=== PATIENT | male | born 1940 ===

== ENCOUNTER 2022-09-28 10:57 | Inpatient (IN) | payer OTHER ==
[~2022-09-28] VITALS: Ht 172.7 cm; Wt 77.1 kg
[~2022-09-28 10:57] MED LIST: ADULT LOW DOSE81 M1 PO; ALDACTONE25 MG PO; BRILINTA90 MG PO; LASIX20 MG PO; LIPITOR40 MG PO; TOPROL XL50 M1 PO; VASOTEC20 M1 PO
[2022-09-28] MEDS ORDERED: ENALAPRIL MALEA10 MG PO (11:42)
[2022-09-28] MEDS ORDERED: LEVOTHYROXINE25 MCG PO (11:42)
[2022-10-09] MEDS ORDERED: MEDROLPACK PO (08:12)
[2022-10-09] MEDS ORDERED: AMOX-CLAV 875-1 EACH PO (08:12)
[2022-10-09] MEDS ORDERED: PERCOCET 5-3251 EACH PO (08:12)
[2022-10-09] MEDS ORDERED: NEURONTIN800 MG PO (08:12)
[2022-10-09] MEDS ORDERED: COLACE100 MG PO (08:12)
== END 2022-10-11 13:25 | DRG 455 ==
LOC: PED 10-09 05:30 → O/R 10-09 05:30 → SURH 10-09 09:47 → PED 10-09 15:57
PROVIDERS: ADMIT Orthopaedic Surgery Orthopaedic Surgery of the Spine; ATTEND Orthopaedic Surgery Orthopaedic Surgery of the Spine
PROC: 0SG0071 Fusion of Lumbar Vertebral Joint with Autologous Tissue Substitute, Posterior Approach, Posterior Column, Open Approach (ICD-10-PCS; 2022-10-09)
PROC: 0QB30ZZ Excision of Left Pelvic Bone, Open Approach (ICD-10-PCS; 2022-10-09)
PROC: 0ST20ZZ Resection of Lumbar Vertebral Disc, Open Approach (ICD-10-PCS; 2022-10-09)
PROC: 07DR0ZZ Extraction of Iliac Bone Marrow, Open Approach (ICD-10-PCS; 2022-10-09)
PROC: XRGB0R7 Fusion of Lumbar Vertebral Joint using Custom-Made Anatomically Designed Interbody Fusion Device, Open Approach, New Technology Group 7 (ICD-10-PCS; principal; 2022-10-09 15:30)
DX: M48.062 Spinal stenosis, lumbar region with neurogenic claudication (principal); M41.56 Other secondary scoliosis, lumbar region; M51.36 Other intervertebral disc degeneration, lumbar region

== ENCOUNTER → 2022-10-09 06:26 | Outpatient (CLI) | payer OTHER ==
[~2022-10-09 06:26] MED LIST changes: +AMOX-CLAV 875-1 EACH PO; +COLACE100 MG PO; +ENALAPRIL MALEA10 MG PO; +LEVOTHYROXINE25 MCG PO; +MEDROLPACK PO; +NEURONTIN800 MG PO; +PERCOCET 5-3251 EACH PO
== END | disposition home or self-care (01) ==
LOC: LAB 06:26
DX: Z03.818 Encounter for observation for suspected exposure to other biological agents ruled out (principal)